=== PATIENT | male | born 1965 | race African-American/Black ===

== ENCOUNTER 2018-03-07 06:23 | Emergency (ER) | payer OTHER ==
[~2018-03-07] VITALS: Ht 177.8 cm; Wt 84.4 kg
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
--- NOTE | 2018-03-07 06:24 | NUR ---
ER MD CHOW AT BEDSIDE FOR EVAL
[2018-03-07] MEDS ORDERED: HALOPERIDOL LACTATE INJ 5 MG/ML VIAL ONE (06:36)
[2018-03-07] MEDS ORDERED: LORAZEPAM INJ 2 MG/ML VIAL ONE (06:36)
[2018-03-07] MEDS ORDERED: LORAZEPAM INJ 2 MG/ML VIAL IM ONE ×2 (07:00)
[2018-03-07] MEDS ORDERED: HALOPERIDOL LACTATE INJ 5 MG/ML VIAL IM ONE (07:00)
[2018-03-07 07:17] LABS: BASOPHILS % (AUTO) 0.2 % (0.0-2.0); HEMATOCRIT 44 % (39-51); LYMPHOCYTES # (AUTO) 1.7 /CMM (0.8-4.8); LYMPHOCYTES % (AUTO) 21.2 % (20.0-44.0); MEAN CORPUSCULAR HEMOGLOBIN 27 PG (26.0-33.0); MEAN CORPUSCULAR HGB CONC 32 g/dl (31.0-36.0); MEAN CORPUSCULAR VOLUME 86 fL (80-96); MONOCYTES # (AUTO) 0.5 /CMM (0.1-1.30); MONOCYTES % (AUTO) 6.1 % (2.0-12.0); NEUTROPHILS # (AUTO) 5.7 /CMM (1.8-8.9); NEUTROPHILS % (AUTO) 71.5 % (43.0-81.0); PLATELET COUNT (AUTO) 239 /CMM (150-450); RDW COEFFICIENT OF VARIATION 13.8 (11.5-15.0); RED BLOOD CELL COUNT(AUTO) 5.13 MIL/uL (4.5-6.0); WHITE BLOOD COUNT (AUTO) 7.9 K/uL (4.3-11.0)
[2018-03-07 07:32] LABS: ALCOHOL, BLOOD < 3 mg/dL (0-0); CALCIUM, SERUM 8.4 mg/dL (8.5-10.1); CARBON DIOXIDE 30 mmol/L (21-32); CHLORIDE 105 mmol/L (98-107); CREATININE 0.9 mg/dL (0.6-1.3); GLUCOSE 109 mg/dL (74-106); POTASSIUM 3.7 mmol/L (3.5-5.1); SODIUM SERUM 141 mmol/L (136-145); UREA NITROGEN, BLOOD 17 mg/dL (7-18)
[2018-03-07 07:37] LABS: INR 1.1 (0.87-1.13)
[2018-03-07] MEDS ORDERED: CT SWABBABLE VALVE TRANS SET 1 EA INFUS.SET MC ONE (07:58)
[2018-03-07] MEDS ORDERED: IV NS 0.9% 250 ML IV ONE (07:58)
[2018-03-07] MEDS ORDERED: IOHEXOL-300 100 ML VIAL IV ONE (07:58)
--- NOTE | 2018-03-07 08:32 | NUR ---
PT BACK FROM CT.
[2018-03-07 09:26] VITALS: BP 144/78
--- NOTE | 2018-03-07 09:28 | NUR ---
Patient discharged to home in stable condition. Written and verbal after care instructions given. Patient verbalizes understanding of instruction.
--- NOTE | 2018-03-07 09:38 | NUR ---
IV removed. Catheter intact and site benign. Pressure and 4x4 applied to site. No bleeding noted.
== END 2018-03-07 09:35 ==
LOC: ER 06:27
DX: S20.311A Abrasion of right front wall of thorax, initial encounter (principal); R45.1 Restlessness and agitation; R94.02 Abnormal brain scan; V43.92XA Unspecified car occupant injured in collision with other type car in traffic accident, initial encounter; Y93.89 Activity, other specified; Y92.410 Unspecified street and highway as the place of occurrence of the external cause; Y99.8 Other external cause status
CPT/HCPCS: 36415; 70450; 71260; 72125; 74177; 80048; 80305; 82962; 85025; 85730; 86706; 87340; 93005; 96372 ×2; 99285; A4606; G0480; J1630; J7050; Q9967; Z7610; J2060